=== PATIENT | female | born 1985 | race Caucasian/White ===

== ENCOUNTER 2016-08-26 09:57 | Emergency (ER) | payer OTHER ==
[2016-08-26] MEDS ORDERED: NAPROXEN 250 MG TABLET PO ONE (10:19)
--- NOTE | 2016-08-26 10:19 | ER Document Report ---
ED Medical Screen (RME) - General Stated Complaint: WRIST/THUMB PAIN Time seen by provider: 10:17 Mode of Arrival: Ambulatory Information source: Patient Notes: 31-year-old female presents to ED for right thumb finger and wrist pain for the last 2 months but getting worse now. States she was seen in the ER right before and states she has not followed up because she's not been able to get into appointment. States they gave her naproxen before it decrease the swelling also put her in a splint which she is not wearing at this time. Last menstrual period. 08/14/1969 I have greeted and performed a rapid initial assessment of this patient. A comprehensive ED assessment and evaluation of the patient, analysis of test results and completion of medical decision making process will be conducted by an additional ED providers. TRAVEL OUTSIDE OF THE [place] IN LAST 30 DAYS: No - Related Data Allergies/Adverse Reactions: No Known Allergies Allergy (Verified 06/17/16 16:51) Past Medical History Pulmonary Medical History: Reports: Hx Bronchitis Neurological Medical History: Reports: Hx Migraine Renal/ Medical History: Reports: Hx Kidney Stones, Hx Ovarian Cysts Psychiatric Medical History: Reports: Hx Attention Deficit Hyperactivity Disorder Past Surgical History: Reports: Hx Breast Surgery - bilat cysts, Hx Cholecystectomy, Hx Orthopedic Surgery - ganglion cyst drained - Immunizations Immunizations up to date: Yes Hx Diphtheria, Pertussis, Tetanus Vaccination: Yes - 2009
--- NOTE | 2016-08-26 11:45 | ER Document Report ---
HPI - HPI Patient complains to provider of: right wrist pain Onset: Other Onset/Duration: Persistent Quality of pain: Achy Pain Level: 3 Context: Patient complains of right wrist pain after twisting her wrist 2 months ago. Patient denies any new injury. Patient is right-hand dominant. Patient does work cleaning houses and her work seems to aggravate her wrist pain. Patient does have a wrist splint at home that she uses periodically. Associated Symptoms: Other - Right wrist pain Exacerbated by: Movement Relieved by: Remaining still Similar symptoms previously: Yes Recently seen / treated by doctor: No - ROS ROS below otherwise negative: Yes Systems Reviewed and Negative: Yes All other systems reviewed and negative - CONSTITUTIONAL Constitutional: DENIES: Fever - CARDIOVASCULAR Cardiovascular: DENIES: Chest pain - REPRODUCTIVE Reproductive: DENIES: : - MUSCULOSKELETAL Musculoskeletal: REPORTS: Extremity pain - Right wrist. DENIES: Swelling - DERM Skin Color: Normal Skin Problems: None Past Medical History - General Information source: Patient - Social History Smoking Status: Current Every Day Smoker Chew tobacco use (# tins/day): No Frequency of alcohol use: None Drug Abuse: None Occupation: housekeeping Lives with: Family Family History: None Patient has suicidal ideation: No Patient has homicidal ideation: No Pulmonary Medical History: Reports: Hx Bronchitis Neurological Medical History: Reports: Hx Migraine Renal/ Medical History: Reports: Hx Kidney Stones, Hx Ovarian Cysts. Denies: Hx Peritoneal Dialysis Psychiatric Medical History: Reports: Hx Attention Deficit Hyperactivity Disorder Past Surgical History: Reports: Hx Breast Surgery - bilat cysts, Hx Cholecystectomy, Hx Orthopedic Surgery - ganglion cyst drained - Immunizations Immunizations up to date: Yes Hx Diphtheria, Pertussis, Tetanus Vaccination: Yes - 2009 Hx Pneumococcal Vaccination: 07/31/00 Vertical Provider Document - CONSTITUTIONAL Agree With Documented VS: Yes Exam Limitations: No Limitations General Appearance: WD/WN, No Apparent Distress - INFECTION CONTROL TRAVEL OUTSIDE OF THE [place] IN LAST 30 DAYS: No - HEENT HEENT: Atraumatic, Normocephalic - NECK Neck: Normal Inspection - RESPIRATORY Respiratory: No Respiratory Distress O2 Sat by Pulse Oximetry: 100 - CARDIOVASCULAR Pulses: Normal: Radial - MUSCULOSKELETAL/EXTREMETIES Musculoskeletal/Extremeties: MAEW, FROM, Tender - Tenderness along medial aspect of distal right radius, no deformity or edema, No Edema Notes: Tenderness increases with flexion and extension - NEURO Level of Consciousness: Awake, Alert, Appropriate Motor/Sensory: No Motor Deficit - DERM Integumentary: Warm, Dry, No Rash Course - Re-evaluation Re-evalutation: 08/26/16 11:43 Patient reports having a wrist brace at home that she uses periodically. - Vital Signs Vital signs: Temp Pulse Resp BP Pulse Ox 98.2 F 80 18 113/67 100 08/26/16 10:17 08/26/16 10:17 08/26/16 10:17 08/26/16 10:17 08/26/16 10:17 Discharge - Discharge Clinical Impression: Tendonitis Wrist pain Qualifiers: Laterality: right Qualified Code(s): M25.531 - Pain in right wrist Condition: Stable Disposition: HOME, SELF-CARE Instructions: Tendonitis ([facility]) Additional Instructions: Return immediately for any new or worsening symptoms Followup with your primary care provider, call tomorrow to make a followup appointment Follow-up with your primary doctor to obtain a referral to radiological health specialist for further evaluation. Use your wrist brace for the next 4-5 days to help with your pain symptoms. Prescriptions: Naproxen [Naprosyn 250 Nmg Tablet] 1 tab PO BID #14 tablet Referrals: [facility] [Provider Group] - Follow up as needed
[2016-08-26 11:50] VITALS: BP 119/67
== END 2016-08-26 11:48 | disposition home or self-care (01) ==
LOC: ER 09:57
DX: M77.9 Enthesopathy, unspecified (principal); M25.531 Pain in right wrist; F17.200 Nicotine dependence, unspecified, uncomplicated; Z87.442 Personal history of urinary calculi; Z90.49 Acquired absence of other specified parts of digestive tract
CPT/HCPCS: 99283

== ENCOUNTER 2018-11-07 09:22 | Emergency (ER) | payer SELFPAY ==
[2018-11-07 09:34] VITALS: BP 123/68
[2018-11-07] MEDS ORDERED: LIDOCAINE 5% (700 MG) TRANSDERMAL ADH..PATCH TP ONE (10:16)
--- NOTE | 2018-11-07 10:20 | ER Document Report ---
HPI - HPI Patient complains to provider of: rib pain R side Time Seen by Provider: 11/07/18 09:51 Pain Level: 3 Context: Pleasant 33-year-old female right lower rib pain times 1 week. She states that she viral illness and was having persistent coughing. She states that when she coughs the pain is worse and when she also takes deep breaths the pain is worse. She denies any shortness of breath at rest. She denies fever, chills, nausea, vomiting, urinary symptoms or diarrhea. No trauma no falls. No other complaints. - RESPIRATORY Respiratory: REPORTS: Coughing - REPRODUCTIVE Reproductive: DENIES: : Past Medical History - Social History Smoking Status: Unknown if Ever Smoked Family History: None Patient has suicidal ideation: No Patient has homicidal ideation: No Pulmonary Medical History: Reports: Hx Bronchitis Neurological Medical History: Reports: Hx Migraine Renal/ Medical History: Reports: Hx Kidney Stones, Hx Ovarian Cysts. Denies: Hx Peritoneal Dialysis Psychiatric Medical History: Reports: Hx Attention Deficit Hyperactivity Disorder Past Surgical History: Reports: Hx Breast Surgery - bilat cysts, Hx Cholecystectomy, Hx Orthopedic Surgery - ganglion cyst drained - Immunizations Immunizations up to date: Yes Hx Diphtheria, Pertussis, Tetanus Vaccination: Yes - 2009 Hx Pneumococcal Vaccination: 07/31/00 Vertical Provider Document - CONSTITUTIONAL Notes: PHYSICAL EXAMINATION: Reviewed vital signs and charting by RN GENERAL: Alert, interacts well. No acute distress. HEAD: Normocephalic, atraumatic. EYES: Pupils equal and round. Extraocular movements intact. ENT: Oral mucosa moist, tongue midline. NECK: Full range of motion. Supple. Trachea midline. LUNGS: Clear to auscultation bilaterally, no wheezes, rales, or rhonchi. No respiratory distress. HEART: Regular rate and rhythm. No murmur ABDOMEN: soft, non-tender. Non-distended. Bowel sounds present. no McBurney's point tenderness, no Gustafson sign. EXTREMITIES: Moves all 4 extremities spontaneously. No edema, No cyanosis. Normal distal neurovascular exam MSK: Tenderness to palpation across the anterior numbers 7 and 8 ribs on the right side. No swelling, no erythema. NEUROLOGIC: Oriented and appropriate. Normal speech. PSYCH: Normal affect, normal mood. SKIN: Warm, dry, normal turgor. No rashes or lesions noted. - INFECTION CONTROL TRAVEL OUTSIDE OF THE [place] IN LAST 30 DAYS: No Course - Re-evaluation Re-evalutation: 11/07/18 10:21 Overall well-appearing. Symptoms most consistent with costochondritis. No acute shortness of breath, hypoxia, tachycardia so had very low suspicion for pneumothorax. Chest x-ray not indicated at this time as it will not warp changer. Patient is stable for discharge with a Lidoderm patch. - Vital Signs Vital signs: Temp Pulse Resp BP Pulse Ox 98.4 F 83 16 123/68 98 11/07/18 09:32 11/07/18 09:32 11/07/18 09:32 11/07/18 09:32 11/07/18 09:32 Discharge - Discharge Clinical Impression: Rib pain on right side Condition: Good Disposition: HOME, SELF-CARE Instructions: Anti-Inflammatory Medication ([facility]), Chest Wall Pain ([facility]) Additional Instructions: You were seen in the emergency department this morning for rib pain. It is most likely due to swelling and inflammation of the muscles that surround your ribs. This is called costochondritis. Have fractured a rib from violent severe coughing likely. Regardless, it will not change the management. Please take Motrin 600 mg every 6 hours around the clock as this will help with the inflammation. You can also take Tylenol 1000 mg every 6 hours as needed for pain. We have given you a lidocaine patch that should help your pain as well. You can ice the area for 20 minutes at a time every couple hours as well. If you develop acute shortness of breath, have worsening pain, acute severe ab dominal pain,
== END 2018-11-07 10:27 | disposition home or self-care (01) ==
LOC: ER 09:22
DX: R07.81 Pleurodynia (principal); R05 Cough
CPT/HCPCS: 99283